=== PATIENT | female | born 1975 | race African-American/Black ===

== ENCOUNTER 2019-01-23 08:51 | Outpatient (CLI) | payer SELFPAY ==
[2019-01-23 09:29] LABS: Hematocrit 46.5 % (30.3-42.9); Hemoglobin 15.7 gm/dl (10.1-14.3); Mean Corpuscular HGB Conc 34 % (30-34); Mean Corpuscular Volume 93 fl (79-97); Platelet Count 175 K/mm3 (140-440); Red Blood Count 5.01 M/mm3 (3.65-5.03); Red Cell Distribution Width 13.2 % (13.2-15.2)
[2019-01-23 09:46] LABS: Alanine Aminotransferase 20 units/L (7-56); Albumin 4.9 g/dL (3.9-5); BUN/Creatinine Ratio 22; Blood Urea Nitrogen 11 mg/dL (7-17); Calcium 9.7 mg/dL (8.4-10.2); HDL Cholesterol 69 mg/dL (40-59); Hemolysis Index 5; LDL Cholesterol,Direct 148 mg/dL (50-130)
--- NOTE | 2019-01-23 09:59 | XRay Report ---
CHEST 2 VIEWS INDICATION: UP ON RIGHT MIDDLE /PAIN. COMPARISON: none FINDINGS: Support devices: None. Heart: Within normal limits. Lungs: No acute air space or interstitial disease. Pleura: No significant pleural effusion. No pneumothorax. Additional findings: None. IMPRESSION: 1. No acute findings. Signer Name: Jose Xiong MD Signed: 01/23/2019 9:55 AM Workstation Name: [id number]
== END 2019-01-23 08:52 | disposition home or self-care (01) ==
LOC: XRAY 08:51
PROVIDERS: ATTEND Internal Medicine
DX: R07.89 Other chest pain (principal)
CPT/HCPCS: 36415; 71046; 80053; 80061; 82785; 84436; 84443; 85027; 88112; 88312